=== PATIENT | male | born 1995 | race Caucasian/White ===

== ENCOUNTER 2017-02-07 16:11 | Emergency (ER) | payer OTHER, SELFPAY ==
[~2017-02-07] VITALS: Ht 165.1 cm; Wt 59.0 kg
[2017-02-07] MEDS ORDERED: NAPR500T PO (17:07)
[2017-02-07] MEDS ORDERED: VICO5TAB16 PO (17:08)
[2017-02-07] MEDS ORDERED: PERCOCET 5MG/325MG TAB PO ONE (17:15)
--- NOTE | 2017-02-07 17:17 | REP ---
Clinical: Trauma. Technique: AP, lateral, bilateral oblique and radial head views of the left elbow. Findings: There is a nondisplaced fracture involving the radial head with associated swelling and joint effusion. Impression: Nondisplaced fracture of the radial head with underlying joint effusion. Signed by Mitchell Cao MD 02/07/2017 05:07 P
[2017-02-07 17:21] VITALS: BP 126/69
== END 2017-02-07 17:23 | disposition home or self-care (01) ==
LOC: M ED 16:25
DX: S52.125A Nondisplaced fracture of head of left radius, initial encounter for closed fracture (principal); V00.891A Fall from other pedestrian conveyance, initial encounter; Y92.410 Unspecified street and highway as the place of occurrence of the external cause; Y93.9 Activity, unspecified; Y99.9 Unspecified external cause status

== ENCOUNTER 2017-07-10 18:03 | Emergency (ER) | payer OTHER, SELFPAY ==
[~2017-07-10] VITALS: Ht 165.1 cm; Wt 59.9 kg
[~2017-07-10 18:03] MED LIST: NAPR500T PO; VICO5TAB16 PO
[2017-07-10 18:04] VITALS: BP 137/78
[2017-07-10] MEDS ORDERED: IBUP-1022 PO (21:50)
[2017-07-10] MEDS ORDERED: IBUPROFEN 600 MG TAB PO ONE (22:00)
--- NOTE | 2017-07-11 07:42 | REP ---
Right elbow for views : There is no fracture or dislocation. Mineralization and joint spaces are normal. There are no calcifications or foreign bodies. Impression: Negative right elbow . Signed by Loco Padilla MD 07/11/2017 07:34 A
== END 2017-07-10 22:18 | disposition home or self-care (01) ==
LOC: M ED 18:03
DX: S53.401A Unspecified sprain of right elbow, initial encounter (principal); W22.8XXA Striking against or struck by other objects, initial encounter; Y92.830 Public park as the place of occurrence of the external cause; Y93.02 Activity, running; Y99.9 Unspecified external cause status; F41.9 Anxiety disorder, unspecified

== ENCOUNTER 2017-09-13 18:15 | Emergency (ER) | payer SELFPAY, OTHER ==
[2017-09-13] MEDS: IBUPROFEN 600 MG TAB PO (20:00)
[2017-09-13 20:28] LABS: BASO # 0.1 10^3/uL (0.0-0.2); BASO % 0.8 % (0.0-1.0); EOS % 0.6 % (0.0-3.0); IMMATURE GRANULOCYTE % 0.2 % (0-0); LYMPH # 2.5 10^3/uL (1.5-6.5); LYMPH % 38.3 % (24.0-44.0); MEAN CORPUSCULAR HEMOGLOBIN 29.1 pg (27.0-33.0); MEAN CORPUSCULAR HGB CONC 34.9 g/dl (32.0-36.5); MEAN CORPUSCULAR VOLUME 83.2 fl (80.0-96.0); MONO # 0.7 10^3/uL (0.0-0.8); MONO % 11.3 % (0.0-5.0); NEUTROPHILS # 3.1 10^3/uL (1.8-7.7); NEUTROPHILS % 48.8 % (36.0-66.0); PLATELET COUNT, AUTOMATED 381 10^3/uL (150-450); RED CELL DISTRIBUTION WIDTH 11.9 % (11.5-14.5); WHITE BLOOD COUNT 6.4 10^3/uL (4.0-10.0)
[2017-09-13 20:57] LABS: ANION GAP 4 MEQ/L (8-16); BLOOD UREA NITROGEN 15 MG/DL (7-18); CALCIUM LEVEL 8.8 MG/DL (8.5-10.1); CARBON DIOXIDE LEVEL 31 MEQ/L (21-32); CHLORIDE LEVEL 106 MEQ/L (98-107); CREATININE FOR GFR 0.73 MG/DL (0.70-1.30); GLUCOSE, FASTING 85 MG/DL (70-105); MAGNESIUM LEVEL 1.9 MG/DL (1.8-2.4); POTASSIUM SERUM 4.1 MEQ/L (3.5-5.1); SODIUM LEVEL 141 MEQ/L (136-145)
[2017-09-13 21:13] LABS: METHADONE URINE NEGATIVE (NEGATIVE)
== END 2017-09-13 21:41 | disposition home or self-care (01) ==
LOC: M ED 18:15
DX: R42 Dizziness and giddiness (principal); R51 Headache; R07.89 Other chest pain; Z87.891 Personal history of nicotine dependence
CPT/HCPCS: 71020